=== PATIENT | male | born 1995 | race American Indian/Alaskan Native ===

== ENCOUNTER 2022-03-15 12:34 | Emergency (ER) | payer OTHER ==
[2022-03-15] MEDS ORDERED: DOXYCYCLINE 100 MG CAP PO ONE (20:45)
--- NOTE | 2022-03-15 20:49 | Emergency Department Report ---
ED General Adult HPI - General Chief complaint: Skin Rash Stated complaint: BUMP ON CHIN Source: patient Mode of arrival: Ambulatory Limitations: No Limitations - History of Present Illness Initial comments: Patient is a 26-year-old male with no past medical history who presents to the ED with complaint of acute onset persistent painful itchy maculopapular rashes on the face diffusely for the last 12 hours. Patient states that no one else at home is had similar symptoms. Patient states that the facial rashes have been increasing and some are now on his lips. Patient denies dizziness, syncope, chest pain, shortness of breath, fever, chills, nausea and vomiting, headache, change in vision, cough or sore throat. MD Complaint: facial itrchy painful rashes -: Sudden, hour(s) (12) Location: face Radiation: non-radiation Severity scale (0 -10): 4 Quality: burning, aching, constant, other (itchy) Consistency: constant Improves with: none Worsens with: none Associated Symptoms: denies other symptoms, rash (itchy facial maculopapular rashes). denies: chest pain, cough, diaphoresis, fever/chills, headaches, malaise, nausea/vomiting, seizure - Related Data Previous Rx's Medication Instructions Recorded Last Taken Type Doxycycline Hyclate 100 mg PO Q12H #28 cap 03/15/22 Unknown Rx Ibuprofen [Motrin] 600 mg PO Q8H PRN #30 tablet 03/15/22 Unknown Rx diphenhydrAMINE [Benadryl CAP] 25 mg PO Q6HR PRN #30 capsule 03/15/22 Unknown Rx Allergies Allergy/AdvReac Type Severity Reaction Status Date / Time No Known Allergies Allergy Unverified 03/15/22 13:04 ED Review of Systems ROS: Stated complaint: BUMP ON CHIN Other details as noted in HPI Constitutional: denies: chills, fever Eyes: denies: eye pain, eye discharge, vision change ENT: denies: ear pain, throat pain Respiratory: denies: cough, shortness of breath, wheezing Cardiovascular: denies: chest pain, palpitations Endocrine: no symptoms reported Gastrointestinal: denies: abdominal pain, nausea, vomiting, diarrhea Genitourinary: denies: urgency, dysuria Musculoskeletal: denies: back pain, joint swelling, arthralgia Skin: rash (Diffuse itchy mild erythematous maculopapular rashes on the face), change in color, pruritus. denies: lesions Neurological: denies: headache, weakness, paresthesias Psychiatric: denies: anxiety, depression Hematological/Lymphatic: denies: easy bleeding, easy bruising ED Past Medical Hx - Past Medical History Previous Medical History?: No - Surgical History Past Surgical History?: No - Medications Home Medications: Home Medications Medication Instructions Recorded Confirmed Last Taken Type Doxycycline Hyclate 100 mg PO Q12H #28 cap 03/15/22 Unknown Rx Ibuprofen [Motrin] 600 mg PO Q8H PRN #30 tablet 03/15/22 Unknown Rx diphenhydrAMINE [Benadryl CAP] 25 mg PO Q6HR PRN #30 capsule 03/15/22 Unknown Rx ED Physical Exam - General Limitations: No Limitations General appearance: alert, in no apparent distress - Head Head exam: Present: atraumatic, normocephalic, normal inspection - Eye Eye exam: Present: normal appearance, PERRL, EOMI Pupils: Present: normal accommodation - ENT ENT exam: Present: normal exam, normal orophraynx, mucous membranes moist, TM's normal bilaterally, normal external ear exam - Neck Neck exam: Present: normal inspection, full ROM. Absent: tenderness, meningismus, lymphadenopathy, thyromegaly - Respiratory Respiratory exam: Present: normal lung sounds bilaterally. Absent: respiratory distress, wheezes, rales, stridor, chest wall tenderness, accessory muscle use, decreased breath sounds, prolonged expiratory - Cardiovascular Cardiovascular Exam: Present: regular rate, normal rhythm, normal heart sounds. Absent: systolic murmur, diastolic murmur, rubs, gallop - GI/Abdominal GI/Abdominal exam: Present: soft, normal bowel sounds. Absent: tenderness, guarding, rebound, rigid, hyperactive bowel sounds, hypoactive bowel sounds, organomegaly, bruit - Extremities Exam Extremities exam: Present: normal inspection, full ROM, normal capillary refill. Absent: tenderness, pedal edema, joint swelling, calf tenderness - Back Exam Back exam: Present: normal inspection, full ROM. Absent: tenderness, CVA tenderness (R), CVA tenderness (L), muscle spasm, paraspinal tenderness, vertebral tenderness, rash noted - Neurological Exam Neurological exam: Present: alert, oriented X3, CN II-XII intact, normal gait, reflexes normal - Psychiatric Psychiatric exam: Present: normal affect, normal mood - Skin Skin exam: Present: warm, dry, intact, normal color, rash (Mild erythematous maculopapular rashes on the cheek, chin and on the upper and lower lips) ED Course Vital Signs 03/15/22 13:03 Temperature 98.2 F Pulse Rate 90 Respiratory 18 Rate Blood Pressure 104/74 [Left] O2 Sat by Pulse 99 Oximetry ED Medical Decision Making - Medical Decision Making This is a 26-year-old male with no past medical history who presents to the ED with complaint of acute onset persistent painful itchy maculopapular rashes on the face diffusely for the last 12 hours. Patient states that no one else at home is had similar symptoms. Patient states that the facial rashes have been increasing and some are now on his lips. In the ED, patient is alert and oriented x3 and is not in any distress. Patient is hemodynamically stable. Patient was treated in the ED empirically with doxycycline 100 mg p.o. x1. Patient was discharged home on medications and advised to follow-up with [facility] for further testing of suspected Monkeypox infection. Patient was advised to self quarantine at home until he gets his test results. Patient was advised to return to the ED immediately if symptoms get worse. - Differential Diagnosis Folliculitis; monkey pox; cellulitis; Critical care attestation.: If time is entered above; I have spent that time in minutes in the direct care of this critically ill patient, excluding procedure time. ED Disposition Clinical Impression: Cellulitis of face, Acute folliculitis, Human monkeypox Disposition: 01 HOME / SELF CARE / HOMELESS Is pt being admited?: No Does the pt Need Aspirin: No Condition: Stable Instructions: Cellulitis, Adult, [id number], Folliculitis Additional Instructions: Take medication with food, drink plenty of fluids, follow-up with the [facility] for further testing of suspected monkey pox infection. Self quarantine at home until the test results are released by [facility]. Return to the ED immediately if your symptoms get worse. Prescriptions: diphenhydrAMINE [Benadryl CAP] 25 mg PO Q6HR PRN #30 capsule PRN Reason: Itching Doxycycline Hyclate 100 mg PO Q12H #28 cap Ibuprofen [Motrin] 600 mg PO Q8H PRN #30 tablet PRN Reason: Pain Referrals: [facility] [Provider Group] - 7-10 days Forms: Work/School Release Form(ED) Time of Disposition: 21:00 Print Language: YEMENI
[2022-03-15 22:37] VITALS: BP 116/76
== END 2022-03-15 22:37 | disposition home or self-care (01) ==
LOC: ED 12:34
DX: L03.211 Cellulitis of face (principal); L66.2 Folliculitis decalvans; B04 Monkeypox
CPT/HCPCS: 99282